=== PATIENT | female | born 1975 ===

== ENCOUNTER 2020-07-18 04:25 | Emergency (ER) | payer SELFPAY ==
--- NOTE | 2020-07-18 04:42 | Emergency Department Report ---
ED Abdominal Pain HPI - General Chief Complaint: Abdominal Pain Stated Complaint: RT SIDE FLANK PAIN PUI?: No Time Seen by Provider: 07/18/20 04:39 Source: patient Mode of arrival: Ambulatory Limitations: No Limitations - History of Present Illness Initial Comments: Patient is a 44-year-old female that presents emergency room with complaints of right upper quadrant. It started yesterday at noon. Patient states the symptoms are worsening. Patient states the symptoms are more intense after eating. Patient denies nausea, vomiting, diarrhea. Patient denies urinary symptoms. Patient states the pain is in her right upper quadrant and is nonradiating. Patient states the pain is a 10 out of 10. Patient states the pain is also worse with movement. Patient states the pain is better with rest. Patient denies fever and chills. Patient denies chest pain or shortness of breath. Patient states he has a history of gallstones and has had her appendix removed already. Patient denies recent travel. Patient denies recent international travel. Patient denies exposure to the novel coronavirus. Patient denies sick contacts. Patient denies fever and chills. Patient denies cough. Patient denies diarrhea. Patient denies coming in contact with anybody with symptoms of the novel coronavirus. MD Complaint: abdominal pain -: Sudden Location: RUQ Radiation: none Migration to: no migration Severity: severe Severity scale (0 -10): 10 Quality: stabbing Consistency: constant Improves With: rest Worsens With: eating, movement Associated Symptoms: denies: nausea, vomiting, diarrhea, fever, chills, constipation, dysuria, hematemesis, hematochezia, melena, hematuria, anorexia - Related Data Previous Rx's Medication Instructions Recorded Last Taken Type Docusate Sodium [Colace] 100 mg PO BID PRN #20 capsule 07/18/20 Unknown Rx Allergies Allergy/AdvReac Type Severity Reaction Status Date / Time No Known Allergies Allergy Unverified 07/18/20 04:53 ED Review of Systems ROS: Stated complaint: RT SIDE FLANK PAIN Other details as noted in HPI Constitutional: denies: chills, fever Eyes: denies: eye pain, eye discharge, vision change ENT: denies: ear pain, throat pain Respiratory: denies: cough, shortness of breath, wheezing Cardiovascular: denies: chest pain, palpitations Endocrine: no symptoms reported Gastrointestinal: as per HPI, abdominal pain. denies: nausea, diarrhea Genitourinary: denies: urgency, dysuria, discharge Musculoskeletal: denies: back pain, joint swelling, arthralgia Skin: denies: rash, lesions Neurological: denies: headache, weakness, paresthesias Psychiatric: denies: anxiety, depression Hematological/Lymphatic: denies: easy bleeding, easy bruising ED Past Medical Hx - Past Medical History Previous Medical History?: No - Surgical History Past Surgical History?: Yes Additional Surgical History: appendectomy - Family History Family history: no significant - Social History Smoking Status: Never Smoker Substance Use Type: None - Medications Home Medications: Home Medications Medication Instructions Recorded Confirmed Last Taken Type Docusate Sodium [Colace] 100 mg PO BID PRN #20 capsule 07/18/20 Unknown Rx ED Physical Exam - General Limitations: No Limitations General appearance: alert, in no apparent distress - Head Head exam: Present: atraumatic, normocephalic - Eye Eye exam: Present: normal appearance - ENT ENT exam: Present: mucous membranes moist - Neck Neck exam: Present: normal inspection - Respiratory Respiratory exam: Present: normal lung sounds bilaterally. Absent: respiratory distress - Cardiovascular Cardiovascular Exam: Present: regular rate, normal rhythm. Absent: systolic murmur, diastolic murmur, rubs, gallop - GI/Abdominal GI/Abdominal exam: Present: soft, tenderness (Right upper quadrant tenderness to palpation.), normal bowel sounds. Absent: distended, guarding - Extremities Exam Extremities exam: Present: normal inspection - Back Exam Back exam: Present: normal inspection - Neurological Exam Neurological exam: Present: alert, oriented X3 - Psychiatric Psychiatric exam: Present: normal affect, normal mood - Skin Skin exam: Present: warm, dry, intact, normal color. Absent: rash ED Course Vital Signs 07/18/20 07/18/20 04:32 04:55 Temperature 97.7 F Pulse Rate 65 Respiratory 18 16 Rate Blood Pressure 123/65 O2 Sat by Pulse 100 Oximetry - Reevaluation(s) Reevaluation #1: Patient states her pain is better. I discussed all results and clinical findings with patient. I discussed plan of care with patient. Patient agrees with plan of care. Patient is stable for discharge. Patient will be discharged home. Patient given discharge instructions. Patient voiced understanding of discharge instructions. 07/18/20 06:15 ED Medical Decision Making - Lab Data Result diagrams: 07/18/20 04:57 07/18/20 04:57 - Radiology Data Radiology results: report reviewed CT ABDOMEN AND PELVIS WITH CONTRAST INDICATION / CLINICAL INFORMATION: Patient complains of R.U.Q. abd pain x 1 day. Hx of Gallstones. TECHNIQUE: Axial CT images were obtained through the abdomen and pelvis after Omnipaque 300, [address] scans at this location are performed using CT dose reduction for ALARA by means of automated exposure control. COMPARISON: None available. FINDINGS: LOWER CHEST: No significant abnormality. LIVER: Probable small cyst at the dome. Mild heterogeneity. GALLBLADDER: Surgically absent. BILE DUCTS: No significant abnormality. PANCREAS: No significant abnormality. SPLEEN: No significant abnormality. ADRENALS: No significant abnormality. RIGHT KIDNEY / URETER: No significant abnormality. LEFT KIDNEY / URETER: No significant abnormality. STOMACH / SMALL BOWEL: No significant abnormality. COLON: No significant abnormality. APPENDIX: No significant abnormality. PERITONEUM: No free fluid. No free air. No fluid collection. LYMPH NODES: No significant adenopathy. VASCULAR STRUCTURES: No significant abnormality. URINARY BLADDER: No significant abnormality. REPRODUCTIVE ORGANS: IUD. 2.1 cm left ovarian cyst. ADDITIONAL FINDINGS: Small fat-containing umbilical hernia. SKELETAL SYSTEM: No significant abnormality. IMPRESSION: 1. Mild hepatic heterogeneity. Possible passive congestion. 2. Fat-containing umbilical hernia. 3. 2.1 cm cyst left ovary. - Medical Decision Making Patient is a 44-year-old female who presents emergency room with right upper quadrant tenderness. Patient had tenderness to palpation on exam. Patient had labs done which were essentially unremarkable. Patient had a CT scan of the abdomen and the patient stated that she had a history of gallstones and still johns d her gallbladder. On the CT scan the patient's gallbladder is surgically absent. patient had a CT scan of the abdomen and it was negative for acute findings except for a ovarian cyst. Patient is stable for discharge. Patient discharged home. - Differential Diagnosis Constipation, gallstones, kidney stone, ovarian cyst. Critical care attestation.: If time is entered above; I have spent that time in minutes in the direct care of this critically ill patient, excluding procedure time. ED Disposition Clinical Impression: RUQ abdominal pain, Biliary colic Constipation Qualifiers: Constipation type: unspecified constipation type Qualified Code(s): K59.00 - Constipation, unspecified Disposition: TO HOME OR SELFCARE Is pt being admited?: No Does the pt Need Aspirin: No Condition: Stable Instructions: Abdominal Pain (ED), Constipation, Adult, Abdominal Pain, Adult, [id number] Additional Instructions: Patient to follow-up with primary care in 2 to 3 days. Patient to follow-up with rodding anode worker in 2 to 3 days. Patient to rest. Patient to increase w ater. Patient to avoid fatty foods and spicy foods. Patient to eat a high- fiber diet. Patient to take Tylenol as needed for pain. . Patient to return to the ER if condition worsens, changes or new symptoms arise. Prescriptions: Docusate Sodium [Colace] 100 mg PO BID PRN #20 capsule PRN Reason: Constipation Referrals: PRIMARY CARE, [Primary Care Provider] - 2-3 Days HARSHA SPENCER MD [Staff Physician] - 2-3 Days Time of Disposition: 06:19 Print Language: BURKINAN
[2020-07-18] MEDS ORDERED: ONDANSETRON 4 MG/2 ML INJ IV ONE (04:48)
[2020-07-18] MEDS ORDERED: HYDROmorphone 1 MG/1 ML INJ IV ONE (04:48)
[2020-07-18] MEDS ORDERED: SODIUM CHLORIDE 0.9% 1000 ML 1,000 ML IV ONE ×3 (04:48→08:07)
[2020-07-18 05:00] LABS: Bilirubin,Urine NEG (Negative); Blood,Urine NEG (Negative); Color,Urine Colorless (Yellow); Protein,Urine <15 mg/dL mg/dL (Negative); Urobilinogen,Urine < 2.0 mg/dL (<2.0)
[2020-07-18 05:12] LABS: Basophils % (Auto) 0.3 % (0.0-1.8); Eosinophils # (Auto) 0.1 K/mm3 (0.0-0.4); Eosinophils % (Auto) 1.3 % (0.0-4.3); Hematocrit 35.4 % (30.3-42.9); Lymphocytes # (Auto) 2.1 K/mm3 (1.2-5.4); Lymphocytes % (Auto) 22.7 % (13.4-35.0); Mean Corpuscular HGB Conc 34 % (30-34); Mean Corpuscular Volume 89 fl (79-97); Monocytes # (Auto) 0.6 K/mm3 (0.0-0.8); Monocytes % (Auto) 6.3 % (0.0-7.3); Platelet Count 269 K/mm3 (140-440); Red Blood Count 3.96 M/mm3 (3.65-5.03); Red Cell Distribution Width 13.8 % (13.2-15.2)
[2020-07-18 05:34] LABS: Alanine Aminotransferase 8 units/L (7-56); Albumin 3.9 g/dL (3.9-5); Blood Urea Nitrogen 11 mg/dL (7-17); Calcium 8.6 mg/dL (8.4-10.2); Hemolysis Index 24
[2020-07-18 05:41] LABS: BUN/Creatinine Ratio 18
--- NOTE | 2020-07-18 06:12 | Cat Scan Report ---
CT ABDOMEN AND PELVIS WITH CONTRAST INDICATION / CLINICAL INFORMATION: Patient complains of R.U.Q. abd pain x 1 day. Hx of Gallstones. TECHNIQUE: Axial CT images were obtained through the abdomen and pelvis after Omnipaque 300, 100 cc I V contrast. All CT scans at this location are performed using CT dose reduction for ALARA by means o f automated exposure control. COMPARISON: None available. FINDINGS: LOWER CHEST: No significant abnormality. LIVER: Probable small cyst at the dome. Mild heterogeneity. GALLBLADDER: Surgically absent. BILE DUCTS: No significant abnormality. PANCREAS: No significant abnormality. SPLEEN: No significant abnormality. ADRENALS: No significant abnormality. RIGHT KIDNEY / URETER: No significant abnormality. LEFT KIDNEY / URETER: No significant abnormality. STOMACH / SMALL BOWEL: No significant abnormality. COLON: No significant abnormality. APPENDIX: No significant abnormality. PERITONEUM: No free fluid. No free air. No fluid collection. LYMPH NODES: No significant adenopathy. VASCULAR STRUCTURES: No significant abnormality. URINARY BLADDER: No significant abnormality. REPRODUCTIVE ORGANS: IUD. 2.1 cm left ovarian cyst. ADDITIONAL FINDINGS: Small fat-containing umbilical hernia. SKELETAL SYSTEM: No significant abnormality. IMPRESSION: 1. Mild hepatic heterogeneity. Possible passive congestion. 2. Fat-containing umbilical hernia. 3. 2.1 cm cyst left ovary. Signer Name: Ben Vences MD Signed: 07/18/2020 6:08 AM Workstation Name: [id number]
--- NOTE | 2020-07-18 06:45 | Emergency Department Report ---
ED General Adult HPI - General Chief complaint: Abdominal Pain Stated complaint: RT SIDE FLANK PAIN PUI?: No Time Seen by Provider: 07/18/20 04:39 Source: patient Mode of arrival: Ambulatory Limitations: No Limitations - History of Present Illness Initial comments: called to bedside at 6:35 AM as patient being discharged, abruptly hypotensive. Patient without complaint, has been evaluated for right upper quadrant abdominal pain with negative CT abdomen pelvis, reassuring lab work. Severity scale (0 -10): 1 - Related Data Previous Rx's Medication Instructions Recorded Last Taken Type Docusate Sodium [Colace] 100 mg PO BID PRN #20 capsule 07/18/20 Unknown Rx Allergies Allergy/AdvReac Type Severity Reaction Status Date / Time No Known Allergies Allergy Unverified 07/18/20 04:53 ED Review of Systems ROS: Stated complaint: RT SIDE FLANK PAIN Other details as noted in HPI Constitutional: denies: chills, fever Eyes: denies: eye pain, eye discharge, vision change ENT: denies: ear pain, throat pain Respiratory: denies: cough, shortness of breath, wheezing Cardiovascular: denies: chest pain, palpitations Endocrine: no symptoms reported Gastrointestinal: as per HPI. denies: nausea, diarrhea Genitourinary: denies: urgency, dysuria, discharge Musculoskeletal: denies: back pain, joint swelling, arthralgia Skin: denies: rash, lesions Neurological: denies: headache, weakness, paresthesias Psychiatric: denies: anxiety, depression Hematological/Lymphatic: denies: easy bleeding, easy bruising ED Past Medical Hx - Past Medical History Previous Medical History?: No Additional medical history: Cholecystectomy - Surgical History Past Surgical History?: Yes Additional Surgical History: appendectomy - Social History Smoking Status: Never Smoker Substance Use Type: None - Medications Home Medications: Home Medications Medication Instructions Recorded Confirmed Last Taken Type Docusate Sodium [Colace] 100 mg PO BID PRN #20 capsule 07/18/20 Unknown Rx ED Physical Exam - General Limitations: No Limitations General appearance: alert, in no apparent distress - Head Head exam: Present: atraumatic, normocephalic - Eye Eye exam: Present: normal appearance - ENT ENT exam: Present: mucous membranes moist - Neck Neck exam: Present: normal inspection - Respiratory Respiratory exam: Present: normal lung sounds bilaterally. Absent: respiratory distress - Cardiovascular Cardiovascular Exam: Present: regular rate, normal rhythm - GI/Abdominal GI/Abdominal exam: Present: soft, normal bowel sounds - Extremities Exam Extremities exam: Present: normal inspection - Back Exam Back exam: Present: normal inspection - Neurological Exam Neurological exam: Present: alert, oriented X3 - Psychiatric Psychiatric exam: Present: normal affect, normal mood - Skin Skin exam: Present: warm, dry, intact, normal color. Absent: rash ED Course Vital Signs 07/18/20 07/18/20 07/18/20 04:32 04:55 06:38 Temperature 97.7 F 98.1 F Pulse Rate 65 48 L Respiratory 18 16 19 Rate Blood Pressure 123/65 Blood Pressure 84/55 [Left] O2 Sat by Pulse 100 100 Oximetry 07/18/20 07/18/20 07/18/20 07:20 07:43 08:10 Temperature Pulse Rate 50 L 58 L 49 L Respiratory 18 12 11 L Rate Blood Pressure Blood Pressure 81/49 83/60 90/50 [Left] O2 Sat by Pulse 99 98 100 Oximetry 07/18/20 07/18/20 07/18/20 08:29 08:45 09:06 Temperature Pulse Rate 51 L 53 L 53 L Respiratory 16 14 15 Rate Blood Pressure Blood Pressure 89/45 98/56 112/50 [Left] O2 Sat by Pulse 100 99 99 Oximetry 07/18/20 07/18/20 09:21 09:41 Temperature Pulse Rate 48 L 53 L Respiratory 16 13 Rate Blood Pressure Blood Pressure 120/49 106/40 [Left] O2 Sat by Pulse 100 100 Oximetry - Reevaluation(s) Reevaluation #1: 07/18/20 06:53 Patient given IV normal saline 1 L x 2 EKG, chest x-ray, additional lab work ordered 07/18/20 14:45 Reevaluation #2: 07/18/20 14:45 On reevaluation, patient in no acute distress, normotensive times several measurements, abdomen soft nontender, EKG, lab work, chest x-ray reassuring. ED Medical Decision Making - Lab Data Result diagrams: 07/18/20 04:57 07/18/20 04:57 Lab Results 07/18/20 07/18/20 07/18/20 Range/Units 04:57 04:57 04:57 WBC 9.4 (4.5-11.0) K/mm3 RBC 3.96 (3.65-5.03) M/mm3 Hgb 12.0 (10.1-14.3) gm/dl Hct 35.4 (30.3-42.9) % MCV 89 (79-97) fl MCH 30 (28-32) pg MCHC 34 (30-34) % RDW 13.8 (13.2-15.2) % Plt Count 269 (140-440) K/mm3 Lymph % (Auto) 22.7 (13.4-35.0) % Ripley % (Auto) 6.3 (0.0-7.3) % Eos % (Auto) 1.3 (0.0-4.3) % Baso % (Auto) 0.3 (0.0-1.8) % Lymph # (Auto) 2.1 (1.2-5.4) K/mm3 Ripley # (Auto) 0.6 (0.0-0.8) K/mm3 Eos # (Auto) 0.1 (0.0-0.4) K/mm3 Baso # (Auto) 0.0 (0.0-0.1) K/mm3 Seg Neutrophils % 69.4 (40.0-70.0) % Seg Neutrophils # 6.5 (1.8-7.7) K/mm3 Sodium 134 L (137-145) mmol/L Potassium 4.0 (3.6-5.0) mmol/L Chloride 100.7 (98-107) mmol/L Carbon Dioxide 25 (22-30) mmol/L Anion Gap 12 mmol/L BUN 11 (7-17) mg/dL Creatinine 0.6 (0.6-1.2) mg/dL Estimated GFR > 60 ml/min BUN/Creatinine Ratio 18 % Glucose 94 (65-100) mg/dL Calcium 8.6 (8.4-10.2) mg/dL Total Bilirubin < 0.20 (0.1-1.2) mg/dL AST 11 (5-40) units/L ALT 8 (7-56) units/L Alkaline Phosphatase 53 (35-129) units/L Troponin T (0.00-0.029) ng/mL Total Protein 6.4 (6.3-8.2) g/dL Albumin 3.9 (3.9-5) g/dL Albumin/Globulin Ratio 1.6 % Lipase (13-60) units/L HCG, Qual Negative (Negative) Urine Color (Yellow) Urine Turbidity (Clear) Urine pH (5.0-7.0) Ur Specific [place] (1.003-1.030) Urine Protein (Negative) mg/dL Urine Glucose (UA) (Negative) mg/dL Urine Ketones (Negative) mg/dL Urine Blood (Negative) Urine Nitrite (Negative) Urine Bilirubin (Negative) Urine Urobilinogen (<2.0) mg/dL Ur Leukocyte Esterase (Negative) Urine WBC (Auto) (0.0-6.0) /HPF Urine RBC (Auto) (0.0-6.0) /HPF U Epithel Cells (Auto) (0-13.0) /HPF 07/18/20 07/18/20 Range/Units 07:25 Unknown WBC (4.5-11.0) K/mm3 RBC (3.65-5.03) M/mm3 Hgb (10.1-14.3) gm/dl Hct (30.3-42.9) % MCV (79-97) fl MCH (28-32) pg MCHC (30-34) % RDW (13.2-15.2) % Plt Count (140-440) K/mm3 Lymph % (Auto) (13.4-35.0) % Ripley % (Auto) (0.0-7.3) % Eos % (Auto) (0.0-4.3) % Baso % (Auto) (0.0-1.8) % Lymph # (Auto) (1.2-5.4) K/mm3 Ripley # (Auto) (0.0-0.8) K/mm3 Eos # (Auto) (0.0-0.4) K/mm3 Baso # (Auto) (0.0-0.1) K/mm3 Seg Neutrophils % (40.0-70.0) % Seg Neutrophils # (1.8-7.7) K/mm3 Sodium (137-145) mmol/L Potassium (3.6-5.0) mmol/L Chloride (98-107) mmol/L Carbon Dioxide (22-30) mmol/L Anion Gap mmol/L BUN (7-17) mg/dL Creatinine (0.6-1.2) mg/dL Estimated GFR ml/min BUN/Creatinine Ratio % Glucose (65-100) mg/dL Calcium (8.4-10.2) mg/dL Total Bilirubin (0.1-1.2) mg/dL AST (5-40) units/L ALT (7-56) units/L Alkaline Phosphatase (35-129) units/L Troponin T < 0.010 (0.00-0.029) ng/mL Total Protein (6.3-8.2) g/dL Albumin (3.9-5) g/dL Albumin/Globulin Ratio % Lipase 63 H (13-60) units/L HCG, Qual (Negative) Urine Color Colorless (Yellow) Urine Turbidity Clear (Clear) Urine pH 6.0 (5.0-7.0) Ur Specific [place] 1.004 (1.003-1.030) Urine Protein <15 mg/dl (Negative) mg/dL Urine Glucose (UA) Neg (Negative) mg/dL Urine Ketones Neg (Negative) mg/dL Urine Blood Neg (Negative) Urine Nitrite Neg (Negative) Urine Bilirubin Neg (Negative) Urine Urobilinogen < 2.0 (<2.0) mg/dL Ur Leukocyte Esterase Neg (Negative) Urine WBC (Auto) 0.0 (0.0-6.0) /HPF Urine RBC (Auto) 1.0 (0.0-6.0) /HPF U Epithel Cells (Auto) < 1.0 (0-13.0) /HPF Vital Signs 07/18/20 07/18/20 07/18/20 04:32 04:55 06:38 Temperature 97.7 F 98.1 F Pulse Rate 65 48 L Respiratory 18 16 19 Rate Blood Pressure 123/65 Blood Pressure 84/55 [Left] O2 Sat by Pulse 100 100 Oximetry 07/18/20 07/18/20 07/18/20 07:20 07:43 08:10 Temperature Pulse Rate 50 L 58 L 49 L Respiratory 18 12 11 L Rate Blood Pressure Blood Pressure 81/49 83/60 90/50 [Left] O2 Sat by Pulse 99 98 100 Oximetry 07/18/20 07/18/20 07/18/20 08:29 08:45 09:06 Temperature Pulse Rate 51 L 53 L 53 L Respiratory 16 14 15 Rate Blood Pressure Blood Pressure 89/45 98/56 112/50 [Left] O2 Sat by Pulse 100 99 99 Oximetry 07/18/20 07/18/20 09:21 09:41 Temperature Pulse Rate 48 L 53 L Respiratory 16 13 Rate Blood Pressure Blood Pressure 120/49 106/40 [Left] O2 Sat by Pulse 100 100 Oximetry - EKG Data -: EKG Interpreted by Me (Sinus rhythm at 49, no ST-T changes, normal QRS) - Radiology Data Radiology results: report reviewed Chest x-ray negative per radiology Critical care attestation.: If time is entered above; I have spent that time in minutes in the direct care of this critically ill patient, excluding procedure time. ED Disposition Clinical Impression: RUQ abdominal pain Disposition: - TO HOME OR SELFCARE Is pt being admited?: No Condition: Stable Instructions: Constipation, Adult, Abdominal Pain, Adult, [id number], Abdominal Pain (ED) Additional Instructions: Patient to follow-up with primary care in 2 to 3 days. Patient to follow-up with card setter in 2 to 3 days. Patient to rest. Patient to increase water. Patient to avoid fatty foods and spicy foods. Patient to eat a high- fiber diet. Patient to take Tylenol as needed for pain. . Patient to return to the ER if condition worsens, changes or new symptoms arise. Prescriptions: Docusate Sodium [Colace] 100 mg PO BID PRN #20 capsule PRN Reason: Constipation Referrals: HARSHA SPENCER MD [Staff Physician] - 2-3 Days PRIMARY CARE, [Primary Care Provider] - 2-3 Days Print Language: KINYARWANDA
--- NOTE | 2020-07-18 07:02 | XRay Report ---
CHEST 1 VIEW 07/18/2020 5:55 AM INDICATION / CLINICAL INFORMATION: abdominal pain. COMPARISON: None available. FINDINGS: SUPPORT DEVICES: None. HEART / MEDIASTINUM: No significant abnormality. LUNGS / PLEURA: No significant pulmonary or pleural abnormality. No pneumothorax. ADDITIONAL FINDINGS: No significant additional findings. IMPRESSION: No acute abnormality. Signer Name: Ben Vences MD Signed: 07/18/2020 6:57 AM Workstation Name: [id number]
[2020-07-18] MEDS ORDERED: KETOROLAC 30 MG/1 ML INJ IV ONE (09:22)
[2020-07-18 09:41] VITALS: BP 106/40
== END 2020-07-18 09:41 | disposition home or self-care (01) ==
LOC: ED 04:25
DX: R10.11 Right upper quadrant pain (principal); Z90.49 Acquired absence of other specified parts of digestive tract; Z79.899 Other long term (current) drug therapy
CPT/HCPCS: 36415; 71045; 74177; 80053; 81001; 83690; 84484; 84703; 85025; 93005; 96361; 96374; 96375; 99285; J1170; J1885; J2405; J7030; Q9967